=== PATIENT | male | born 1935 | race Caucasian/White ===

== ENCOUNTER 2016-06-04 10:19 | Outpatient (CLI) | payer MEDICARE, OTHER ==
[2013-07-25 00:43] VITALS: BP 124/65
== END 2016-06-04 10:20 ==
LOC: POD 10:19
PROVIDERS: ATTEND Podiatrist Public Medicine
DX: E11.42 Type 2 diabetes mellitus with diabetic polyneuropathy (principal); B35.1 Tinea unguium; L60.0 Ingrowing nail; M79.674 Pain in right toe(s); M79.675 Pain in left toe(s)
CPT/HCPCS: 11721; G0463

== ENCOUNTER 2016-06-27 17:08 | Emergency (ER) | payer MEDICARE, OTHER ==
--- NOTE | 2016-06-27 17:36 | ED Physician Documentation ---
Upper Respiratory Symptoms - HISTORIAN Historian: patient - HPI Stated Complaint: cough dont feel good Chief Complaint: Cough/ Upper Respiratory Additional Information: started 1 week ago, taking OTC cough and cold meds. Still with cough, no fever, not productive. decreased appetite. Onset: days ago Duration: constant Context: multiple patients Severity: mild Associated Symptoms: shortness of breath Worsened by Deep Breath: No Further Comments: no - ROS CONST/EYES: denies: weakness, eye redness CVS/RESP: shortness of breath LYMPH: denies: leg swelling GI/: none NEURO/PSYCH: denies: fainting, dizziness MS/SKIN: denies: joint pain - PAST HX Lung Disease: COPD PE Risk Factors: hypertension Other History: cardiac disease, CHF, diabetes Type 2 Immunizations: UTD Allergies/Adverse Reactions: Allergies Allergy/AdvReac Type Severity Reaction Status Date / Time Tetanus Vaccines & Toxoid Allergy Unknown Verified 06/27/16 17:47 [Tetanus] Home Medications: Ambulatory Orders Medication Instructions Recorded Furosemide [Furosemide] 40 mg PO BID 07/24/13 Aspirin [Sterling] 81 mg PO DAILY 05/10/14 Potassium Chloride [Klor-Con 10] 10 meq PO DAILY 07/12/14 - SOCIAL HX Smoking History: quit greater than 1 year Alcohol Use: none Drug Use: none - FAMILY HX Family History: none - VITAL SIGNS Vital Signs: Vital Signs Temp Pulse Resp BP Pulse Ox 97.5 F L 74 20 91/57 95 06/27/16 17:10 06/27/16 17:10 06/27/16 17:10 06/27/16 17:10 06/27/16 17:10 - REVIEWED ASSESSMENTS Nursing Assessment Reviewed: Yes Vitals Reviewed: Yes ED Results Lab/Radiology - Lab Results Lab Results: Lab Results 06/27/16 06/27/16 06/27/16 18:10 17:35 17:35 WBC 5.20 K/ul K/ul (4.00-12.00) RBC 4.97 M/ul M/ul (3.90-5.20) Hgb 16.3 g/dL g/dL (12.0-18.0) Hct 48.1 % % (37.0-53.0) MCV 96.9 fl fl (80.0-100.0) MCH 32.7 pg pg (28.0-34.0) MCHC 33.8 g/dL g/dL (30.0-36.0) RDW 13.4 % % (11.3-14.3) Plt Count 132 K/mm3 K/mm3 (130-400) Neut % (Auto) 57.7 % % (39.0-79.0) Lymph % (Auto) 31.2 % % (16.0-50.0) Cooke % (Auto) 6.4 % % (0.0-11.0) Eos % (Auto) 1.3 % % (0.0-6.8) Baso % (Auto) 0.9 (0.0-1.5) Neut # 3.0 # k/uL # k/uL (1.4-7.7) Lymph # 1.6 # k/uL # k/uL (0.6-4.0) Cooke # 0.3 # k/uL # k/uL (0.0-0.9) Eos # 0.1 # k/uL # k/uL (0.0-0.6) Baso # 0.0 # k/uL # k/uL (0.0-0.5) Reactive Lymphs % 2.6 % % (0.0-5.0) Reactive Lymphs # 0.1 # k/uL # k/uL (0.0-0.8) Sodium 136 mmol/L mmol/L (136-145) Potassium 3.6 mmol/L mmol/L (3.5-5.0) Chloride 100 mmol/L mmol/L (98-110) Carbon Dioxide 28 mmol/L mmol/L (20-32) BUN 41 mg/dL H mg/dL (10-26) Creatinine 1.3 mg/dL mg/dL (0.4-1.5) Estimated Creat Clear 67 Est GFR ( Amer) > 60 (60 - ) Est GFR (Non-Af Amer) 57 L (60 - ) Glucose 96 mg/dL mg/dL (70-99) Calcium 9.4 mg/dL mg/dL (8.5-10.5) Total Bilirubin 0.7 mg/dL mg/dL (0.2-1.2) AST 67 U/L H U/L (0-41) ALT 38 U/L U/L (0-45) Alkaline Phosphatase 54 U/L U/L (46-116) Total Protein 8.0 g/dL g/dL (6.0-8.5) Albumin 4.5 g/dL g/dL (3.0-5.5) Influenza Type A Ag Negative (NEGATIVE) Influenza Type B Ag Negative (NEGATIVE) - Radiology Radiology Impressions: CXR NAD - Orders Orders: ED Orders Category Date Time Status Place Saline Lock/IV Now Care 06/27/16 17:32 Active CHEST P.A.&LAT 2 VIEWS [RAD] Stat Exams 06/27/16 17:34 Taken CBC/PLATELET/DIFF Routine Lab 06/27/16 17:35 Completed CMP Routine Lab 06/27/16 17:35 Completed INFLUENZA A&B Routine Lab 06/27/16 18:10 Completed Upper Respiratory Symptoms - EXAM General Appearance: no acute distress, alert EENT: eyes nml inspection, nml ENT inspection, lids & conjunct. nml, pharynx nml , airway nml Neck: normal inspection, supple. No: lymphadenopathy, stiff neck Respiratory: no resp. distress, breath sounds nml, no pain on inspiration, speaks full sentences, no pleuritic chest pain. No: wheezes, rales, rhonchi Abdomen: non-tender. No: tenderness CVS: reg rate & rhythm, heart sounds normal, equal pulses Skin: color nml, no rash, warm,dry Extremities: non-tender, normal range of motion, no evidence of injury, no edema Neuro/Psych: oriented x3, neuro intact, mood/affect nml Discharge Clincal Impression: URI (upper respiratory infection) Qualifiers: URI type: unspecified viral URI Qualified Code(s): J06.9 - Acute upper respiratory infection, unspecified; B97.89 - Other viral agents as the cause of diseases classified elsewhere Home Medications: Ambulatory Orders Furosemide [Furosemide] 40 mg PO BID 07/24/13 Aspirin [Sterling] 81 mg PO DAILY 05/10/14 Potassium Chloride [Klor-Con 10] 10 meq PO DAILY 07/12/14 Condition: Good Disposition: 01 HOME, SELF-CARE Decision to Admit: NO Date of Decison to Admit: 06/27/16 Decision Time: 18:18
[2016-06-27 17:46] LABS: BASOPHILS % 0.9 (0.0-1.5); EOSINOPHILS % 1.3 % (0.0-6.8); LYMPHOCYTES # 1.6 # k/uL (0.6-4.0); MEAN CORPUSCULAR HEMOGLOBIN 32.7 pg (28.0-34.0); MONOCYTES # 0.3 # k/uL (0.0-0.9); MONOCYTES % 6.4 % (0.0-11.0)
[2016-06-27 17:51] LABS: eGFR (African) > 60; eGFR (Non-African) 57
[2016-06-27 19:20] VITALS: BP 84/59
--- NOTE | 2016-06-27 20:47 | Diagnostic Imaging Report ---
JAIDEN RECINOS [facility] [address] [facility] [address] [place] [address]. [id number] Report Submission Date: Jun 27, 2016 6:02:29 PM POWDER ROOM ATTENDANT Patient Study Name: CHRISTI LIVINGSTON Date: Jun 27, 2016 5:43:36 PM POWDER ROOM ATTENDANT Modality Type: CR Gender: M Description: CHEST : 37 Institution: [facility] Physician: JAIDEN RECINOS Pa and lateral chest Clinical history :short of breath coughing Comparison June 27, 2016 Technique pa and lateral upright Findings: Lung ogden are hyperinflated. No infiltrate masses or pleural effusions are seen. The findings of coronary artery bypass grafting are present. There is no pleural effusion. Aortic calcification is present. Impression: Hyperinflation Cardiomegaly No acute infiltrate Coronary bypass grafting No change from the previous chest radiograph Electronically signed on Jun 27, 2016 6:02:29 PM POWDER ROOM ATTENDANT by: Jose ELENA
== END 2016-06-27 18:35 | disposition home or self-care (01) ==
LOC: ED 17:08
DX: J06.9 Acute upper respiratory infection, unspecified (principal)
CPT/HCPCS: 71020; 80053; 85025; 87400; 99283; S1016

== ENCOUNTER 2016-07-16 08:52 | Outpatient (CLI) | payer MEDICARE, OTHER | END 2016-07-16 08:53 | LOC: LAB 08:52 | PROVIDERS: ATTEND Family Medicine | DX: E11.9 Type 2 diabetes mellitus without complications (principal) | CPT/HCPCS: 36415; 80061; 83036 ==

== ENCOUNTER 2016-09-08 08:55 | Outpatient (CLI) | payer OTHER | END 2016-09-08 08:56 | LOC: LAB 08:55 | PROVIDERS: ATTEND Family Medicine | DX: Z79.899 Other long term (current) drug therapy (principal); Z79.01 Long term (current) use of anticoagulants | CPT/HCPCS: 36415; 85610 ==

== ENCOUNTER 2016-09-17 10:02 | Outpatient (CLI) | payer OTHER ==
[2013-07-25 00:43] VITALS: BP 124/65
== END 2016-09-17 10:03 ==
LOC: POD 10:02
PROVIDERS: ATTEND Podiatrist Public Medicine
DX: E11.42 Type 2 diabetes mellitus with diabetic polyneuropathy (principal); B35.1 Tinea unguium; L60.0 Ingrowing nail; M79.674 Pain in right toe(s); M79.675 Pain in left toe(s); Z79.01 Long term (current) use of anticoagulants
CPT/HCPCS: 11721; G0463

== ENCOUNTER 2016-12-17 09:50 | Outpatient (CLI) | payer OTHER | END 2016-12-17 09:52 | LOC: POD 09:50 | PROVIDERS: ATTEND Podiatrist Public Medicine | DX: E11.42 Type 2 diabetes mellitus with diabetic polyneuropathy (principal); M19.071 Primary osteoarthritis, right ankle and foot; M19.072 Primary osteoarthritis, left ankle and foot; M20.11 Hallux valgus (acquired), right foot; M20.12 Hallux valgus (acquired), left foot; M89.371 Hypertrophy of bone, right ankle and foot; M89.372 Hypertrophy of bone, left ankle and foot; B35.1 Tinea unguium; L60.0 Ingrowing nail; M79.675 Pain in left toe(s); M79.674 Pain in right toe(s) | CPT/HCPCS: 11721; G0463 ==

== ENCOUNTER 2017-01-21 10:39 | Outpatient (CLI) | payer OTHER | END 2017-01-21 10:40 | LOC: LAB 10:39 | PROVIDERS: ATTEND Family Medicine | DX: E11.9 Type 2 diabetes mellitus without complications (principal) | CPT/HCPCS: 36415; 83036 ==

== ENCOUNTER 2017-03-17 10:13 | Outpatient (CLI) | payer OTHER ==
--- NOTE | 2017-03-18 14:04 | PAIN CLINIC PROGRESS NOTES ---
Dear Dr. Reyes: REASON FOR VISIT: I had the opportunity of Dilan Tim today as an outpatient at [facility]. As you are aware, Dilan is a delightful 81-year-old white male with cervical spondylosis that I treated in April with radiofrequency neurolysis of the cervical spine, cervical facet joints C3, C4, C5, and C6 bilaterally and his neck pain has done very well for the past year. He comes in today with 2 complaints. One is that the cervical pain and stiffness is beginning to return and two, a new onset of low back pain associated with neurogenic claudication and pain down his legs and inability to ambulate. He has had a few falls at this point. He has been walking with a cane. He says that he has very little symptoms when he sits down or at rest. When he gets up and after he is up for 5 or 10 minutes, he begins getting pain in the back and both lower extremities. I think this is consistent with spinal stenosis. He has not had any imaging. He has been nonsteroidal antiinflammatories. He has had a home exercise program in the past and he has had a successful treatment for cervical spondylosis. ASSESSMENT: 1. Cervical spondylosis with recurrent symptoms. 2. New onset of neurogenic claudication symptoms with spinal stenosis. 3. Currently on Coumadin for coronary artery disease. PLAN : We will obtain an MRI study and follow him up on the 14 of April for possible epidural steroid injection for spinal stenosis and then proceed with treatment for cervical spondylosis if necessary. Dr. Reyes, we will need to stop his Coumadin. His last date of Coumadin should be on the [address] Reyes, thank you very much for allowing me to take part in the care of this nice gentleman. I appreciate the opportunity to take part in the care of your patients. cc: Dr. Amy ELENA
== END 2017-03-17 10:14 ==
LOC: OUT 10:13
PROVIDERS: ATTEND Anesthesiology Pain Medicine
DX: M47.892 Other spondylosis, cervical region (principal); M48.00 Spinal stenosis, site unspecified; I25.10 Atherosclerotic heart disease of native coronary artery without angina pectoris
CPT/HCPCS: 99213; G0463

== ENCOUNTER 2017-03-18 10:05 | Outpatient (CLI) | payer OTHER | END 2017-03-18 10:06 | LOC: POD 10:05 | PROVIDERS: ATTEND Podiatrist Public Medicine | DX: E11.42 Type 2 diabetes mellitus with diabetic polyneuropathy (principal); M19.071 Primary osteoarthritis, right ankle and foot; M19.072 Primary osteoarthritis, left ankle and foot; M20.11 Hallux valgus (acquired), right foot; M20.12 Hallux valgus (acquired), left foot; M89.371 Hypertrophy of bone, right ankle and foot; M89.372 Hypertrophy of bone, left ankle and foot; Z79.01 Long term (current) use of anticoagulants; B35.1 Tinea unguium; L60.0 Ingrowing nail; M79.674 Pain in right toe(s); M79.675 Pain in left toe(s) | CPT/HCPCS: 11721; G0463 ==

== ENCOUNTER 2017-04-14 10:00 | Outpatient (CLI) | payer OTHER ==
--- NOTE | 2017-04-14 11:44 | PAIN CLINIC PROGRESS NOTES ---
Dear Ella: REASON FOR VISIT: I had the opportunity of following up with Dilan Tim. Mr. Tim is a delightful 81-year-old white male I treated for cervical spondylosis who comes in today with symptoms of radiculitis. I obtained an MRI study which shows multi-level degenerative disk disease and global spondylolytic changes in his back, most concerning of which is a right paracentral L5-S1 disk protrusion contacting the descending S1 nerve root. He does have some moderate to severe neural foraminal stenosis at the L5 nerve root as well. My recommendation is an S1 transforaminal and he tells me he stopped his Coumadin, but his INR today remains at 2.9. He has a history of coronary artery disease and a coronary artery bypass graft. ASSESSMENT: 1. Lumbar radiculitis. 2. L5-S1 right paracentral disk protrusion. 3. Global spondylosis. 4. L5-S1 moderate to severe right neural foraminal stenosis. 5. Cervical spondylosis. PLAN: At this point, I think it is prudent to get him worked into the schedule in the next few days for a right S1 transforaminal nerve block. I am going to have him continue to hold his Coumadin and he understands he is to follow up with Dr. Reyes tomorrow and I will follow him up on or Thursday for a S1 transforaminal nerve root block on the right side and then restart his Coumadin. He will likely need a repeat radiofrequency neurolysis of the cervical spine with monitored anesthesia care sometime in the future. cc: Dr. Ella ELENA
== END 2017-04-14 10:02 ==
LOC: OUT 10:00
PROVIDERS: ATTEND Anesthesiology Pain Medicine
DX: M54.16 Radiculopathy, lumbar region (principal); M51.27 Other intervertebral disc displacement, lumbosacral region; M47.899 Other spondylosis, site unspecified; M48.07 Spinal stenosis, lumbosacral region
CPT/HCPCS: 36415; 85610; 99213; G0463

== ENCOUNTER 2017-04-15 10:31 | Outpatient (CLI) | payer OTHER | END 2017-04-15 10:32 | LOC: LAB 10:31 | PROVIDERS: ATTEND Family Medicine | DX: E11.9 Type 2 diabetes mellitus without complications (principal); Z51.81 Encounter for therapeutic drug level monitoring | CPT/HCPCS: 36415; 83036; 85610 ==

== ENCOUNTER 2017-06-03 11:12 | Outpatient (CLI) | payer OTHER ==
[2017-04-17 14:10] VITALS: BP 128/82
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
== END 2017-06-03 11:14 ==
LOC: RAD 11:12
PROVIDERS: ATTEND Family Medicine
DX: M25.511 Pain in right shoulder (principal)
CPT/HCPCS: 73030

== ENCOUNTER 2017-06-16 10:22 | Outpatient (CLI) | payer OTHER ==
[2017-04-17 14:10] VITALS: BP 128/82
[~2017-06-16 10:22] MED LIST: 0.9 % SODIUM CHLORIDE PF 10 ML VIAL IJ ONE; Lidocaine 1% 5ml(IM or SUTURE)(PAIN CLINIC) ONE; TRIAMCINOLONE ACETONID 40MG/ML VIAL ONE
--- NOTE | 2017-06-16 14:45 | CAUDAL ESI WITH FLUORO ---
REFERRING PHYSICIAN: Dr. Ella Reyes SUBJECTIVE: I had the opportunity of seeing Dilan Tim today in follow up. This is a delightful 82-year-old white male with a history of lumbar radiculitis and previous radiculopathy who presents today with recurrent back pain, bilateral lower extremity pain, and neck pain. I have treated him in the past for cervical spondylosis as well. At this point, he presents with recurrent low back pain. He says that at this time it is no longer in his left hip, it is in both hips, but not fully radiating down his legs. Plan today for a caudal epidural steroid injection under fluoroscopic guidance. I told him I would follow him up for cervical facet medial branch blocks and potential radiofrequency neurolysis for cervical spondylosis. PROCEDURE: Caudal epidural steroid injection under fluoroscopic guidance. DESCRIPTION OF PROCEDURE: The risks and benefits of a caudal epidural steroid injection were explained to the patient, including the risk of infection, bleeding, nerve injury, worsened pain, failure to relieve pain, spinal headache or steroid exposure risks, including hyperglycemia, hypertension, osteoporosis, and increased infectious risks. The patient understood the risks and agreed to proceed. The patient was positioned prone on the fluoroscopic procedure table and sterile prep and drape were applied. Under AP and lateral fluoroscopic imaging , the corner of the sacrum and sacral hiatus were identified. A skin wheal was raised over the sacrum. A number 23-gauge spinal needle was advanced into the sacral hiatus and into the caudal canal. An injection of 1 mL of non-ionic contrast revealed adequate spread within the caudal epidural space. Following this, the medication was injection. The stylette was replaced in the needle and the needle was subsequently removed from the back. The patient tolerated the procedure without adverse sequelae. The sacral area was cleaned and a bandage was applied over the injection site. The patient was then monitored for 20 minutes following the procedure, during which time the vital signs remained stable and no adverse sequelae were noted or reported. The patient was discharged home with a local owner operator truck driver and was in good condition on discharge. ASSESSMENT: 1. Lumbar stenosis. 2. Cervical spondylosis. PLAN: Caudal epidural steroid injection under fluoroscopic guidance. FOLLOW UP: Patient is to call for complications or worsened pain. cc: Dr. Ella ELENA
== END 2017-06-16 10:24 ==
LOC: OUT 10:22
PROVIDERS: ATTEND Anesthesiology Pain Medicine
DX: M48.061 Spinal stenosis, lumbar region without neurogenic claudication (principal); M43.02 Spondylolysis, cervical region
CPT/HCPCS: 36415; 85610; J3301; Q9966; 62323; G0463

== ENCOUNTER 2017-07-14 10:23 | Outpatient (CLI) | payer OTHER ==
[2017-04-17 14:10] VITALS: BP 128/82
--- NOTE | 2017-07-17 14:14 | CERVICAL MEDIAL BRANCH BLOCKS ---
SUBJECTIVE: Mr. Tim follows up today for bilateral cervical facet medial branch blocks for recurrent cervical spondylosis, cervicogenic headache, and neck pain. He had great results over 2 years ago with cervical facet RF. His back pain is now better as well. We have elected to use monitored anesthesia care today because of the large girth of his neck and Mr. Tim's inability to tolerate injections. Plan today for bilateral C3-C4, C4-C5, and C5-C6 facet medial branch blocks. PROCEDURE: Bilateral C3-C4, C4-C5 and C5-C6 cervical facet joint medial branch blocks with fluoroscopy guidance. DESCRIPTION OF PROCEDURE: The risks and benefits of today's injections were discussed with the patient, including the risk of infection, bleeding, seizure, increased neck or arm pain, and nerve injury including paralysis, and headache. Furthermore, I discussed the risk of steroid exposure causing hyperglycemia, hypertension, osteoporosis, or increased infectious risks. The patient understood these risks and agreed to proceed. Consent was obtained. The patient was placed in the prone position on the fluoroscopy table with a pillow supporting the head and maintaining a neutral cervical spine position. The patient's posterior neck was cleaned and a sterile drape was applied. An AP fluoroscopic view of the C3 vertebra was obtained. Under direct fluoroscopic guidance, a spinal needle was inserted in an AP direction until it contacted the lateral aspect of the left C3 articular pillar at the midpoint ( the "waist"). The position of the needle was verified with AP and lateral fluoroscopic views. It was verified that there was no aspiration of CSF or blood. At this point, Omnipaque 240 myelogram dye was injected through the needle. It was verified with fluoroscopic views that the dye was located along the lateral aspect of the articular pillar of the site of the medial nerve branch of the dorsal ramus innervating the facet joints. At this point, the medication was injected. The stylet was replaced in the needle and the needle was removed from the neck. The exact same procedure was repeated at right C3 articular pillar, bilateral C4 articular pillar, bilateral C5 articular pillar, and bilateral C6 articular pillar (for a total of 8 medial nerve branches blocked). The neck was cleaned and a bandage was applied over the injection site. The patient tolerated the procedure well and was monitored afterwards for a total of 20 minutes during which time the vital signs remained stable. The patient experienced no adverse sequelae and was discharged home in good condition. Prior to discharge the patient was given discharge instructions. ASSESSMENT: Cervical spondylosis. PLAN: Bilateral C3-C4, C4-C5 and C5-C6 cervical facet joint medial branch blocks with fluoroscopy guidance. FOLLOW UP: Return to clinic if problems develop or worsen. cc: Dr. Ella ELENA
== END 2017-07-14 10:25 ==
LOC: OUT 10:23
PROVIDERS: ATTEND Anesthesiology Pain Medicine
DX: M47.812 Spondylosis without myelopathy or radiculopathy, cervical region (principal); E11.9 Type 2 diabetes mellitus without complications; Z79.01 Long term (current) use of anticoagulants
CPT/HCPCS: 36415; 83036; 85610; J2704; 64490; 64491; 64492; 99213; G0463; S1016

== ENCOUNTER 2017-08-05 09:24 | Outpatient (CLI) | payer OTHER ==
[2017-04-17 14:10] VITALS: BP 128/82
== END 2017-08-05 09:26 ==
LOC: POD 09:24
PROVIDERS: ATTEND Podiatrist Public Medicine
DX: E11.42 Type 2 diabetes mellitus with diabetic polyneuropathy (principal); M19.071 Primary osteoarthritis, right ankle and foot; M19.072 Primary osteoarthritis, left ankle and foot; M20.11 Hallux valgus (acquired), right foot; M20.12 Hallux valgus (acquired), left foot; M89.371 Hypertrophy of bone, right ankle and foot; M89.372 Hypertrophy of bone, left ankle and foot; Z79.01 Long term (current) use of anticoagulants; B35.1 Tinea unguium; L60.0 Ingrowing nail; M79.674 Pain in right toe(s); M79.675 Pain in left toe(s)
CPT/HCPCS: 11721; G0463

== ENCOUNTER 2017-08-13 11:48 | Outpatient (CLI) | payer OTHER ==
[2017-04-17 14:10] VITALS: BP 128/82
[2017-08-13 12:14] LABS: BASOPHILS % 1.1 (0.0-1.5); EOSINOPHILS % 3.4 % (0.0-6.8); MEAN CORPUSCULAR HEMOGLOBIN 34.4 pg (28.0-34.0); MEAN CORPUSCULAR VOLUME 98.3 fl (80.0-100.0)
[2017-08-13 12:26] LABS: eGFR (African) > 60; eGFR (Non-African) > 60
--- NOTE | 2017-08-14 07:08 | Diagnostic Imaging Report ---
YAIMA DUENAS [facility] [address] [facility] [address] [address] Report Submission Date: Aug 13, 2017 12:40:56 PM CDT Patient Study Name: CHRISTI LIVINGSTON Date: Aug 13, 2017 12:06:35 PM CDT Modality Type: DX Gender: M Description: CHEST : 37 Institution: [facility] Physician: YAIMA DUENAS Examination: PA and lateral chest. History: Evaluate lung ogden. CXR, DYSPNEA ON EXERTION, WORSENING X2-3 WEEKS ( Hx) Comparison exam: 27 June 2016 Findings: PA lateral chest demonstrate a prominent cardiac and mediastinal silhouette. Sternotomy wires. Stable interstitial changes. No focal infiltrate. No blunting of the costophrenic margins. Osseous structures are appropriate for age. Impression: Stable examination. No acute pulmonary process. Cardiomegaly. Electronically signed on Aug 13, 2017 12:40:56 PM CDT by: Oleg ELENA
== END 2017-08-13 11:55 ==
LOC: LAB 11:48
PROVIDERS: ATTEND Family Medicine
DX: R53.83 Other fatigue (principal); R06.09 Other forms of dyspnea
CPT/HCPCS: 36415; 71046; 80053; 83880; 85025

== ENCOUNTER 2017-08-24 13:17 | Emergency (ER) | payer OTHER ==
--- NOTE | 2017-08-24 13:35 | ED Physician Documentation ---
Dyspnea - HISTORIAN Historian: patient - HPI Stated Complaint: Chest pain Chief Complaint: Dyspnea Onset: days ago Duration: continues in ED Severity: moderate Exacerbated By: exertion, laying flat Associated Symptoms: chest discomfort. denies: chills, fever, bloody cough, productive cough, heart racing, leg pain, calf pain, dizziness, light-headedness , anxiety, hands tingling, face tingling, muscle spasms Further Comments: yes (81 year old male patient sent over from Dr Reyes's clinic for cardiac work up. Patient presented to clinic with complaint of dyspnea and chest pain. On arrival to ER, patient complains of dyspnea with exerction, states "it's been going on for about 2 weeks". States he had chest pain this morning, "went into my (left) shoulder".) - ROS CONST: other (fatigue) EYES/ENT: none GI/: none NEURO/PSYCH: denies: headache MS/SKIN/LYMPH: none - PAST HX Lung Disease: COPD Cardiac Disease: CHF, AMI, A-Fib PE Risk Factors: hypertension Surgeries/Procedures: cardiac bypass, cholecystectomy, other (ORIF - right elbow ; Pelvis frx - plate; C-spine fusion 2007) Other History: diabetes Type 2, other (chronic neck pain; neuropathy, lumbar stenosis) Allergies/Adverse Reactions: Allergies Allergy/AdvReac Type Severity Reaction Status Date / Time Tetanus Vaccines and Toxoid Allergy Unknown Verified 08/24/17 13:33 [Tetanus] Home Medications: Ambulatory Orders Medication Instructions Recorded Furosemide [Furosemide] 40 mg PO BID 07/24/13 Aspirin [Sterling] 81 mg PO DAILY 05/10/14 Potassium Chloride [Klor-Con 10] 10 meq PO DAILY 07/12/14 Insulin Glargine,Hum.rec.anlog 70 units PO AM 08/24/17 [Lantus Solostar] - SOCIAL HX Smoking History: non-smoker - FAMILY HX Family History: denies: none - VITAL SIGNS Vital Signs: Vital Signs Temp Pulse Resp BP Pulse Ox 60 16 126/65 96 08/24/17 13:17 08/24/17 13:17 08/24/17 13:17 08/24/17 13:17 - REVIEWED ASSESSMENTS Nursing Assessment Reviewed: Yes Vitals Reviewed: Yes Progress - Progress Progress: Call to Dr Reyes - updated on patient's lab. Orders to hold propranolol until seen by Dr Wilson. Patient verbalized understanding. ED Results Lab/Radiology - Radiology Radiology Impressions: Examination: PA and lateral chest. History: PT C/O SOA AND PAIN IN THE UPPER LEFT CHEST SINCE THIS MORNING. PT STATES THAT HE HAS HAD A QUAD BYPASS SURGERY ON HIS HEART AND IS A PREVIOUS SMOKER. PT SMOKED UP TO 15 CIGARS PER DAY BUT QUIT SMOKING 40 YEARS AGO. (Hx) Comparison exam: 13 August 2017 Findings: PA lateral chest demonstrate a prominent cardiac and mediastinal silhouette. Sternotomy wires. Stable interstitial changes. No focal infiltrate. No blunting of the costophrenic margins. Articular degenerative changes. Impression: Stable examination. No acute pulmonary process. Cardiomegaly. Electronically signed on Aug 24, 2017 2:15:12 PM CDT by: Oleg Medellin - Orders Orders: ED Orders Category Date Time Status Continuous EKG monitoring Q30M Care 08/24/17 13:27 Active Continuous Pulse Oximetry Q30M Care 08/24/17 13:[address] IV Lock 1T Care 08/24/17 13:27 Active CHEST 2VIEW [RAD] Stat Exams 08/24/17 13:27 Ordered BNP [NT-proBNP] Stat Lab 08/24/17 Ordered CBC/PLATELET/DIFF Stat Lab 08/24/17 13:27 Ordered CMP Stat Lab 08/24/17 13:27 Ordered PT [PT-INR] Stat Lab 08/24/17 Ordered TROPONIN I (cTnI) Stat Lab 08/24/17 Ordered Oxygen Daily Oxygen 08/24/17 13:30 Ordered EKG WITH COMPARISON Stat Ther 08/24/17 13:27 Completed Dyspnea Physical Exam - EXAM General Appearance: no acute distress, alert EENT: eye inspection normal, ENT inspection normal, pharynx normal, no signs of dehydration, FERNANDO, no nystagmus Respiratory: no resp. distress, breath sounds nml, no pain on inspiration, speaks full sentences CVS: no gallop, no friction rub, pulses full, pulses equal, irregularly irreg. rhythm (A fib at 55-60 bpm) Abdomen: non-tender, no organomegaly, no distention, no ascites Skin: color nml, no rash, warm, nml palp., dry Extremities: non-tender, normal range of motion, no evidence of injury, edema (1 + in ankles) Neuro/Psych: oriented x3, CN's nml as tested, motor nml, sensation nml, mood/ affect nml Discharge Clincal Impression: Non-cardiac chest pain Referrals: Ella Reyes MD [Primary Care Provider] - 2 Days Additional Instructions: Rest Tylenol 1-2 tabs as needed every 4 hours for discomfort. Keep your appointment with Dr Wilson for echo and stress test Hold your propranolol until seen by Dr Wilson Return to Er if CP becomes worse or SOB becomes worse. Condition: Stable Disposition: 01 HOME, SELF-CARE Decision to Admit: NO Decision Time: 14:21
[2017-08-24 13:37] LABS: BASOPHILS % 0.7 (0.0-1.5); EOSINOPHILS % 2.5 % (0.0-6.8); MONOCYTES % 5.3 % (0.0-11.0); NEUTROPHILS # 6.8 # k/uL (1.4-7.7)
[2017-08-24 13:52] LABS: eGFR (African) > 60; eGFR (Non-African) > 60
[2017-08-24] MEDS ORDERED: KETOROLAC TROMETHAMINE 30 MG/1ML VIAL ONE (14:08)
[2017-08-24] MEDS: KETOROLAC TROMETHAMINE 30 MG/1ML VIAL IVP ONE (14:13)
[2017-08-24 14:53] VITALS: BP 96/60
--- NOTE | 2017-08-24 15:03 | Diagnostic Imaging Report ---
SHAILESH NICK (ASSISTANT MANAGER OF OPERATIONS) - ER [facility] [address] [facility] [address] [place], [place]. [address] Report Submission Date: Aug 24, 2017 2:15:12 PM CDT Patient Study Name: CHRISTI LIVINGSTON Date: Aug 24, 2017 1:36:39 PM CDT Modality Type: DX Gender: M Description: CHEST : 37 Institution: [facility] Physician: SHAILESH NICK (ASSISTANT MANAGER OF OPERATIONS) - ER Examination: PA and lateral chest. History: PT C/O SOA AND PAIN IN THE UPPER LEFT CHEST SINCE THIS MORNING. PT STATES THAT HE HAS HAD A QUAD BYPASS SURGERY ON HIS HEART AND IS A PREVIOUS SMOKER. PT SMOKED UP TO 15 CIGARS PER DAY BUT QUIT SMOKING 40 YEARS AGO. (Hx) Comparison exam: 13 August 2017 Findings: PA lateral chest demonstrate a prominent cardiac and mediastinal silhouette. Sternotomy wires. Stable interstitial changes. No focal infiltrate. No blunting of the costophrenic margins. Articular degenerative changes. Impression: Stable examination. No acute pulmonary process. Cardiomegaly. Electronically signed on Aug 24, 2017 2:15:12 PM CDT by: Oleg ELENA
== END 2017-08-24 14:40 | disposition home or self-care (01) ==
LOC: ED 13:17
DX: R07.89 Other chest pain (principal)
CPT/HCPCS: 71046; 80053; 83880; 84484; 85025; 85610; 93005; J1885; 96374; 99283; S1016

== ENCOUNTER 2017-09-08 08:45 | Outpatient (CLI) | payer OTHER ==
[2017-09-08] MEDS ORDERED: TRIAMCINOLONE ACETONID 40MG/ML VIAL ONE (08:50)
[2017-09-08] MEDS ORDERED: NORMAL SALINE 500 ML IV.SOLN IV ONE (08:50)
[2017-09-08] MEDS ORDERED: BUPIVACAINE HCL/EPINEPHRINE/PF 0.25% VIAL IM ONE (08:50)
[2017-09-08] MEDS ORDERED: PROPOFOL 200 MG/20 ML VIAL IV ONE (08:50)
[2017-09-08] MEDS ORDERED: SALINE FLUSH 10 ML DISP.SYRIN IVF ONE (08:50)
[2017-09-08] MEDS ORDERED: Lidocaine 2% 20ml Vial ONE (08:50)
--- NOTE | 2017-09-08 14:38 | CERVICAL FACET RF RHIZOTOMIES ---
SUBJECTIVE: Mr. Tim presents today with chronic right and left-sided neck pain, with 100% relief with facet medial branch blocks, for a right-sided facet radiofrequency neurolysis of the cervical spine, C3 through C6 with monitored anesthesia care provided by [employer] because of the patient's large girth and short neck and difficulties lying in a prone position. ANESTHESIA: Monitored anesthesia care by [employer]. OPERATIVE PROCEDURE: Right C3 through C6 cervical fact joint radiofrequency medial nerve branch neurolyses (rhizotomies of 4 nerves) with fluoroscopic guidance. DESCRIPTION OF PROCEDURE: The risks and benefits if the procedure were explained to the patient including the risk of infection, bleeding, and worsened pain or inadvertent nerve injury causing pain or even paralysis. The implications of bleeding and infection were explained including the extremely low probability of severe consequences including meningitis, infarction/stroke, paralysis and . Furthermore, the risk of seizure was mentioned. The patient understood these risks and agreed to proceed. The patient was placed prone on the fluoroscopy table with a pillow underneath the thorax. The back of the neck was cleaned and sterile drapes were applied. Under oblique fluoroscopic imaging, the C3 vertebral body was identified. The lateral margin of the right articular pillar was clearly visualized. A 10 centimeter 20 gauge RFK radiofrequency introducer probe with a 10 mm active tip was advanced under direct fluoroscopic guidance until the tip of the probe contacted the lateral most margin of the vertebral body. A lateral fluoroscopic view was then obtained to verify the position of the needle as located at the lateral margin (at the site of the medial branch of the posterior nerve root.) At this point it was verified that there was no aspiration of CSF or blood from the needle tip. The 10 centimeter RFK radiofrequency probe was then introduced through the needle. A 2 Hz stimulus was affected, gradually increasing the voltage up to 2.5 volts, to verify that there was no motor neuron activation causing muscle contraction in the extremities. The probe was then removed from the introducer needle and Omnipaque 240 myelogram dye was injected through the needle and it was verified that the dye was located at the lateral articular pillar margin. Furthermore it was verified that the dye was not located within the epidural space or intrathecal space or intravascular space. The medication was then injected through the introducer needle. The probe was reintroduced into the needle. A radiofrequency lesion was then affected at a temperature of 70 degrees C. for a period of 60 seconds. The needle was then rotated 180 degrees and withdrawn approximately 3 mm and a second lesion was effected for a period of 60 seconds at a temp. of 70 degrees C. The patient reported no adverse effects during the lesioning. The needle and probe were subsequently removed from the neck. This exact procedure was repeated at the following sites: Right C3, C4, C5, and C6 (for a total of 4 medial nerve branch neurolyses). The patients neck was cleaned and bandages were applied where necessary. The patient tolerated the procedure without any complications. The patient was monitored for 20 minutes after the procedure and was stable during that time. The patient was discharged home in good condition. ASSESSMENT: Cervical spondylosis/facet arthropathy. PLAN: Right C3 through C6 cervical fact joint radiofrequency medial nerve branch neurolyses (rhizotomies of 4 nerves) with fluoroscopic guidance. FOLLOW UP: Follow up for left side next month. cc: Dr. Ella ELENA
== END 2017-09-08 08:46 ==
LOC: OUT 08:45
PROVIDERS: ATTEND Anesthesiology Pain Medicine
DX: M47.812 Spondylosis without myelopathy or radiculopathy, cervical region (principal); Z79.01 Long term (current) use of anticoagulants
CPT/HCPCS: 36415; 85610; Q9966; 64633; 64634; 99213; G0463; J2704; J3301; J7060; S1016

== ENCOUNTER 2017-10-13 09:42 | Outpatient (CLI) | payer OTHER ==
[~2017-10-13 09:42] MED LIST changes: -0.9 % SODIUM CHLORIDE PF 10 ML VIAL IJ ONE; +KETAMINE HCL 200 MG/20 ML VIAL ONE; -Lidocaine 1% 5ml(IM or SUTURE)(PAIN CLINIC) ONE; +NORMAL SALINE 500 ML IV.SOLN IV ONE; +PROPOFOL 200 MG/20 ML VIAL IV ONE; +SALINE FLUSH 10 ML DISP.SYRIN IVF ONE; -TRIAMCINOLONE ACETONID 40MG/ML VIAL ONE
--- NOTE | 2017-10-16 07:33 | CERVICAL FACET RF RHIZOTOMIES ---
SUBJECTIVE: Mr. Tim follows up today with cervical spondylosis. He had complete relief with facet medial branch blocks and previous 1 year relief with cervical radiofrequency neurolysis. He comes back in for repeat left-sided C3, C4, C5, and C6 facet medial branch radiofrequency neurolysis. I have ordered monitored anesthesia care with Marnie Grey CRNA, because the patient has sleep apnea and cannot lie on his stomach. OPERATIVE PROCEDURE: Left cervical fact joint radiofrequency medial nerve branch neurolyses ( rhizotomies of 4 nerves) with fluoroscopic guidance. DESCRIPTION OF PROCEDURE: The risks and benefits if the procedure were explained to the patient including the risk of infection, bleeding, and worsened pain or inadvertent nerve injury causing pain or even paralysis. The implications of bleeding and infection were explained including the extremely low probability of severe consequences including meningitis, infarction/stroke, paralysis and . Furthermore, the risk of seizure was mentioned. The patient understood these risks and agreed to proceed. The patient was placed prone on the fluoroscopy table with a pillow underneath the thorax. The back of the neck was cleaned and sterile drapes were applied. Under an oblique AP fluoroscopic view, the C3 vertebral body was identified. The lateral margin of the left C3 articular pillar was clearly visualized. A 10 centimeter 20 gauge RFK radiofrequency introducer probe with a 10 mm active tip was advanced under direct fluoroscopic guidance until the tip of the probe contacted the lateral most margin of the vertebral body. A lateral fluoroscopic view was then obtained to verify the position of the needle as located at the lateral margin (at the site of the medial branch of the posterior nerve root.) At this point it was verified that there was no aspiration of CSF or blood from the needle tip. The 10 centimeter RFK radiofrequency probe was then introduced through the needle. A 2 Hz stimulus was affected, gradually increasing the voltage up to 2.5 volts, to verify that there was no motor neuron activation causing muscle contraction in the extremities. The probe was then removed from the introducer needle and Omnipaque 240 myelogram dye was injected through the needle and it was verified that the dye was located at the lateral articular pillar margin. Furthermore it was verified that the dye was not located within the epidural space or intrathecal space or intravascular space. Then the medication was injected through the introducer needle. The probe was reintroduced into the needle. A radiofrequency lesion was then affected at a temperature of 80 degrees C. for a period of 60 seconds. The needle was then rotated 180 degrees and withdrawn approximately 3 mm and a second lesion was effected for a period of 60 seconds at a temp. of 80 degrees C. The patient reported no adverse effects during the lesioning. The needle and probe were subsequently removed from the neck. This exact same procedure was repeated at the following sites: C4, C5, and C6 ( for a total of 4 medial nerve branch neurolyses). The patients neck was cleaned and bandages were applied where necessary. The patient tolerated the procedure without any complications. The patient was monitored for 20 minutes after the procedure and was stable during that time. The patient was discharged home in good condition. ASSESSMENT: Cervical facet arthropathy. PLAN: Left cervical fact joint radiofrequency medial nerve branch neurolyses ( rhizotomies of 4 nerves) with fluoroscopic guidance. FOLLOW UP: Return to clinic if problems develop or worsen. cc: Dr. Ella ELENA
== END 2017-10-13 09:43 ==
LOC: OUT 09:42
PROVIDERS: ATTEND Anesthesiology Pain Medicine
DX: M46.82 Other specified inflammatory spondylopathies, cervical region (principal)
CPT/HCPCS: 36415; 64633; 64634; 85610; 99214; G0463; J2704; J7060; Q9966; S1016

== ENCOUNTER 2017-11-18 09:54 | Outpatient (CLI) | payer OTHER | END 2017-11-18 09:56 | LOC: POD 09:54 | PROVIDERS: ATTEND Podiatrist Public Medicine | DX: E11.42 Type 2 diabetes mellitus with diabetic polyneuropathy (principal); M19.071 Primary osteoarthritis, right ankle and foot; M19.072 Primary osteoarthritis, left ankle and foot; M20.11 Hallux valgus (acquired), right foot; M20.12 Hallux valgus (acquired), left foot; M89.371 Hypertrophy of bone, right ankle and foot; M89.372 Hypertrophy of bone, left ankle and foot; Z79.01 Long term (current) use of anticoagulants; B35.1 Tinea unguium; L60.0 Ingrowing nail; M79.674 Pain in right toe(s); M79.675 Pain in left toe(s) | CPT/HCPCS: 11721; G0463 ==

== ENCOUNTER 2017-12-09 10:23 | Outpatient (CLI) | payer OTHER ==
[2017-12-09 11:08] LABS: eGFR (African) > 60; eGFR (Non-African) > 60
== END 2017-12-09 10:25 ==
LOC: LAB 10:23
PROVIDERS: ATTEND Family Medicine
DX: Z51.81 Encounter for therapeutic drug level monitoring (principal); E11.9 Type 2 diabetes mellitus without complications
CPT/HCPCS: 36415; 80048; 83036; 85610

== ENCOUNTER 2018-05-05 19:02 | Emergency (ER) | payer OTHER ==
[~2018-05-05 19:02] MED LIST changes: -KETAMINE HCL 200 MG/20 ML VIAL ONE; +LIDOCAINE HCL 1% PF 50MG/5ML AMP (IM/SUTURE/PAIN CLINIC) ONE; -NORMAL SALINE 500 ML IV.SOLN IV ONE; -PROPOFOL 200 MG/20 ML VIAL IV ONE; -SALINE FLUSH 10 ML DISP.SYRIN IVF ONE; +cefTRIAXone SODIUM 1 GM INJ ONE; +methylPREDNISolone SOD SUCC 125 MG/2 ML VIAL ONE
[2018-05-05 23:40] LABS: MEAN CORPUSCULAR HEMOGLOBIN 31.3 pg (28.0-34.0); MONOCYTES % 9.2 % (0.0-11.0)
[2018-05-05 23:41] LABS: BASOPHILS % 0.7 (0.0-1.5); EOSINOPHILS % 4.6 % (0.0-6.8); NEUTROPHILS # 7.7 # k/uL (1.4-7.7)
[2018-05-05 23:42] LABS: eGFR (Non-African) > 60
--- NOTE | 2018-05-06 06:31 | Diagnostic Imaging Report ---
ELEANOR PINZON [facility] [id number] Counts Include 234 Beds At [facility] [address] [place] [address]. [id number] Report Submission Date: May 05, 2018 8:44:28 PM [employer] Patient Study Name: CHRISTI LIVINGSTON Date: May 05, 2018 7:56:32 PM [employer] Modality Type: DX Gender: U Description: UPPER EXTREMITY : Institution: [facility] Physician: ELEANOR PINZON Left hand, 3 views HISTORY Swelling. FINDINGS Examination is somewhat limited by the patient's inability to straighten the digits. Advanced first carpometacarpal osteoarthritis is noted. Mild degenerative changes are noted in the interphalangeal joints. There is no acute fracture, dislocation or abnormal bone production or destruction. IMPRESSION Degenerative change but no acute abnormality. Electronically signed on May 05, 2018 8:44:28 PM [employer] by: Morgan ELENA
== END 2018-05-05 21:06 ==
LOC: ED 19:02
DX: L03.114 Cellulitis of left upper limb (principal)
CPT/HCPCS: 36415; 73130; 80053; 84550; 85025; 96372; 99282; 99284; J0696; J2930

== ENCOUNTER 2018-06-07 11:02 | Outpatient (CLI) | payer OTHER ==
[2018-06-07 11:45] LABS: eGFR (Non-African) > 60
== END 2018-06-07 11:04 ==
LOC: LAB 11:02
PROVIDERS: ATTEND Family Medicine
DX: I48.2 Chronic atrial fibrillation (principal); E11.9 Type 2 diabetes mellitus without complications; Z79.4 Long term (current) use of insulin
CPT/HCPCS: 36415; 80053; 80061; 83036; 85610

== ENCOUNTER 2018-08-26 10:34 | Outpatient (CLI) | payer MEDICARE, OTHER ==
[2018-08-26 11:36] LABS: BASOPHILS % 0.7 % (0.0-1.5); EOSINOPHILS % 8.8 % (0.0-6.8); MEAN CORPUSCULAR HEMOGLOBIN 32.7 pg (28.0-34.0); MONOCYTES % 7.3 % (0.0-11.0)
[2018-08-26 12:11] LABS: eGFR (Non-African) > 60
== END 2018-08-26 10:36 ==
LOC: LAB 10:34
PROVIDERS: ATTEND Internal Medicine Cardiovascular Disease
DX: I25.10 Atherosclerotic heart disease of native coronary artery without angina pectoris (principal); R94.6 Abnormal results of thyroid function studies
CPT/HCPCS: 36415; 80053; 80061; 80162; 84443; 85025

== ENCOUNTER 2018-09-08 11:26 | Outpatient (CLI) | payer MEDICARE, OTHER | END 2018-09-08 11:28 | LOC: LAB 11:26 | PROVIDERS: ATTEND Family Medicine | DX: E11.9 Type 2 diabetes mellitus without complications (principal); Z79.4 Long term (current) use of insulin | CPT/HCPCS: 36415; 83036 ==

== ENCOUNTER 2019-03-07 11:01 | Outpatient (CLI) | payer MEDICARE, OTHER | END 2019-03-07 11:06 | LOC: LAB 11:01 | PROVIDERS: ATTEND Family Medicine | DX: E11.9 Type 2 diabetes mellitus without complications (principal); Z79.4 Long term (current) use of insulin | CPT/HCPCS: 36415; 83036; 85610 ==

== ENCOUNTER 2019-03-14 10:00 | Outpatient (CLI) | payer MEDICARE, OTHER | END 2019-03-14 10:05 | LOC: LAB 10:00 | PROVIDERS: ATTEND Family Medicine | DX: Z51.81 Encounter for therapeutic drug level monitoring (principal); Z79.899 Other long term (current) drug therapy | CPT/HCPCS: 36415; 85610 ==